=== PATIENT | male | born 1970 | race African-American/Black ===

== ENCOUNTER → 2024-02-28 09:45 | Outpatient (REF) | payer BC, SELFPAY | LOC: RCS 09:45 | PROVIDERS: ATTENDING PHYSICIAN Nurse Practitioner Adult Health | DX: D47.2 Monoclonal gammopathy (principal); R06.00 Dyspnea, unspecified; R07.89 Other chest pain | CPT/HCPCS: 93017 ==

== ENCOUNTER → 2024-04-13 07:16 | Outpatient (REF) | payer BC, SELFPAY ==
[2024-04-13] MEDS: LEXISCAN 0.4 MG IV (09:24)
== END ==
LOC: RCS 07:16
PROVIDERS: ATTENDING PHYSICIAN Nurse Practitioner Adult Health
DX: R94.39 Abnormal result of other cardiovascular function study (principal); R07.9 Chest pain, unspecified
CPT/HCPCS: 78452; 93017; A9500; J2785

== ENCOUNTER → 2024-05-05 10:56 | Outpatient (REF) | payer BC, SELFPAY | LOC: RCS 10:56 | PROVIDERS: ATTENDING PHYSICIAN Nurse Practitioner Adult Health | DX: R94.39 Abnormal result of other cardiovascular function study (principal) | CPT/HCPCS: 93306 ==

== ENCOUNTER 2024-09-06 06:27 | Day surgery (SDC) | payer BC, SELFPAY | END 2024-09-06 13:33 | disposition home or self-care (01) | LOC: GI 06:27 | PROVIDERS: ATTENDING PHYSICIAN Internal Medicine | DX: K64.8 Other hemorrhoids (principal); K55.21 Angiodysplasia of colon with hemorrhage; D12.0 Benign neoplasm of cecum; D12.5 Benign neoplasm of sigmoid colon; K63.5 Polyp of colon; Z98.0 Intestinal bypass and anastomosis status | CPT/HCPCS: 45385; 45380; 88305 ==